=== PATIENT | male | born 1985 | race Caucasian/White ===

== ENCOUNTER 2022-12-30 21:02 | Emergency (ER) | payer BC ==
[2022-12-30] MEDS ORDERED: Sodium Chloride 0.9% 10 ML Syringe FLUSH PRN (21:52)
[2022-12-30 22:12] LABS: ESTIMATED GFR 73 mL/min (>60)
== END 2022-12-30 23:59 | disposition home or self-care (01) ==
LOC: JD.ED 21:02
DX: R07.89 Other chest pain (principal)
CPT/HCPCS: 36415; 71045; 80053; 83735; 84484; 85025; 93005; 99285; J3490; 93010; 99284